=== PATIENT | male | born 1995 | race African-American/Black ===

== ENCOUNTER 2017-04-13 11:44 | Emergency (ER) | payer MEDICAID ==
[~2017-04-13] VITALS: Ht 185.4 cm; Wt 63.5 kg
[2017-04-13] MEDS ORDERED: ALBUTEROL SULF8.5 GM INH (12:02)
[2017-04-13] MEDS ORDERED: PROMETHAZINE-C118 M1 ORAL (12:02)
[2017-04-13] MEDS ORDERED: AMOXICILLIN500 MG ORAL (12:02)
[2017-04-13 12:08] VITALS: BP 134/87
[2017-04-13 12:10] VITALS: BP 134/87
--- NOTE | 2017-04-13 13:53 | Emergency Room Report ---
History of Present Illness General Chief Complaint: Upper Respiratory Illness Source: Patient Present Illness HPI 21-year-old male presents ED complaining of cough and congestion x2 days. 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 Patient notes cough with greenish sputum. Denies any fevers or chills. Denies chest pain. Denies sick contacts or recent travel. No other aggravating relieving factors. Denies any other associated symptoms Allergies: Coded Allergies: No Known Allergies (Unverified , 04/13/17) Patient History Past Medical History: none Past Surgical History: none Pertinent Family History: none Social History: Denies: smoking, alcohol use, drug use Immunizations: UTD Reviewed Nursing Documentation: PMH: Agreed, PSxH: Agreed Nursing Documentation-PMH Past Medical History: No Stated History Review of Systems All Other Systems: negative except mentioned in HPI Physical Exam Vital Signs Date Time Temp Pulse Resp B/P (MAP) Pulse Ox O2 Delivery O2 Flow Rate FiO2 04/13/17 11:48 98.4 98 18 155/87 100 Room Air Sp02 EP Interpretation: reviewed, normal General Appearance: no apparent distress, alert, GCS 15, non-toxic Head: normocephalic Eyes: bilateral eye normal inspection, bilateral eye PERRL ENT: hearing grossly normal, normal pharynx, no angioedema, normal voice Neck: normal inspection Respiratory: chest non-tender, lungs clear, normal breath sounds, speaking full sentences Cardiovascular #1: regular rate, rhythm, no edema Gastrointestinal: normal inspection Rectal: deferred Genitourinary: no CVA tenderness Musculoskeletal: normal inspection Neurologic: alert, oriented x3, responsive, motor strength/tone normal, sensory intact, speech normal Psychiatric: normal inspection Skin: normal inspection Lymphatic: normal inspection Medical Decision Making Diagnostic Impression: Primary Impression: Atypical pneumonia ER Course Hospital Course 21-year-old male presents to ED complaining of cough, congestion Differential diagnoses include: URI, pharyngitis, otitis media, asthma Clinical course Patient placed on stretcher. After initial history, physical exam reveals a young male in no acute distress. Bilateral TM unremarkable. No pharyngeal erythema. No tonsillar exudates. No lymphadenopathy. some crackles appreciated. Clinical findings consistent with atypical pneumonia. we will prescribe abx Diagnosis - atypical pneumonia Stable and discharged home with Rx amoxicillin, promethazine/codeine, albuterol. Instructed to followup with PMD. Return to ED if symptoms recur or worsen Last Vital Signs Date Time Temp Pulse Resp B/P (MAP) Pulse Ox O2 Delivery O2 Flow Rate FiO2 04/13/17 12:10 98 12 134/87 100 Room Air 04/13/17 12:08 98.1 Status: improved Disposition: HOME, SELF-CARE Condition: Stable Scripts Albuterol Sulfate* (ALBUTEROL SULFATE MDI*) 8.5 Gm Hfa.aer.ad 2 PUFF INH Q4H Y for cough/wheezing, #1 EA 0 Refills Prov: LIZETH DIMAS M.D. 04/13/17 Codeine/Promethazine Hcl* (PROMETHAZINE-CODEINE SYRUP*) 118 Ml Syrup 5 ML ORAL Q6H Y for For Cough, #118 ML 0 Refills Prov: LIZETH DIMAS M.D. 04/13/17 Amoxicillin* (AMOXIL*) 500 Mg Capsule 500 MG ORAL THREE TIMES A DAY, #21 CAP Prov: LIZETH DIMAS M.D. 04/13/17 Referrals: NOT CHOSEN FLOR/,REFERRING Departure Forms: Return to Work Return to Work Date: Apr 14, 2017 Work Restrictions: None Patient Instructions: Community-Acquired Pneumonia, Adult, [id number] LIZETH DIMAS M.D. Apr 13, 2017 13:53
== END 2017-04-13 12:10 | disposition home or self-care (01) ==
LOC: EMR 11:55
DX: J18.9 Pneumonia, unspecified organism (principal)
CPT/HCPCS: 99284

== ENCOUNTER 2017-05-04 12:39 | Emergency (ER) | payer MEDICAID ==
[~2017-05-04] VITALS: Ht 182.9 cm; Wt 63.5 kg
[~2017-05-04 12:39] MED LIST: ALBUTEROL SULF8.5 GM INH; AMOXICILLIN500 MG ORAL; PROMETHAZINE-C118 M1 ORAL
[2017-05-04] MEDS ORDERED: NKM (12:54)
[2017-05-04 13:50] VITALS: BP 128/88
[2017-05-04] MEDS ORDERED: PROAIR HFA8.5 GM INH (13:53)
[2017-05-04] MEDS ORDERED: IBUPROFEN600 MG ORAL (13:53)
[2017-05-04] MEDS ORDERED: PROMETHAZINE-C118 M1 ORAL (13:53)
[2017-05-04 14:05] VITALS: BP 124/72
--- NOTE | 2017-05-04 14:54 | Emergency Room Report ---
History of Present Illness General Chief Complaint: Upper Respiratory Illness Source: Patient Present Illness HPI The patient is a 21-year-old male who denies medical history presenting for cough, wheezing, fever, chills for the past one week. He denies any known sick contacts or recent travel. He also admits to nausea but denies vomiting. He denies any other symptoms including hemoptysis, diarrhea, rash, neck pain/ stiffness Allergies: Coded Allergies: No Known Allergies (Unverified , 04/13/17) Patient History Past Medical History: see triage record Pertinent Family History: none Reviewed Nursing Documentation: PMH: Agreed, PSxH: Agreed Review of Systems All Other Systems: negative except mentioned in HPI Physical Exam Vital Signs Date Time Temp Pulse Resp B/P (MAP) Pulse Ox O2 Delivery O2 Flow Rate FiO2 05/04/17 12:50 98.8 88 17 133/91 99 Room Air Sp02 EP Interpretation: reviewed, normal General Appearance: no apparent distress, alert, GCS 15, non-toxic Head: normocephalic, atraumatic Eyes: bilateral eye normal inspection, bilateral eye PERRL ENT: no angioedema, normal voice, uvula midline, nasal congestion, pharyngeal erythema Neck: full range of motion, supple/symm/no masses Respiratory: no respiratory distress, no accessory muscle use, wheezing - bilat Cardiovascular #1: regular rate, rhythm, no edema Genitourinary: normal inspection, no CVA tenderness Musculoskeletal: back normal, gait/station normal, normal range of motion, non- tender Neurologic: alert, oriented x3, responsive, motor strength/tone normal, sensory intact, speech normal Psychiatric: judgement/insight normal, memory normal, mood/affect normal, no suicidal/homicidal ideation Skin: normal color, no rash, warm/dry, well hydrated Lymphatic: no adenopathy Medical Decision Making PA Attestation Dr. Roy is my supervising physician. Patient management was discussed with my supervising physician Diagnostic Impression: Primary Impression: Bronchitis ER Course The patient is a 21-year-old male who denies medical history presenting for cough, wheezing, fever, chills for the past one week. Differential diagnosis include but not limited to pharyngitis, sinusitis, AOM, bronchitis, PNA PE: afebrile. No tachypnea. No apparent distress. No TTP over maxillary or frontal sinuses. Lungs: diffuse wheezing. No accessory muscle use. No resp distress Heart: RRR, no abnormal heart sounds Ears: external auditory canal clear. Non erythematous. Bilat TM intact. Cone of light present bilat. No bulging of TM. No serous fluid seen. no nasal D/C No cervical lymphad No tonsillar exudate. Uvula midline.Oropharynx is erythematous The patient will be discharged home with a prescription for albuterol, cough medication, and motrin. ER precautions given Last Vital Signs Date Time Temp Pulse Resp B/P (MAP) Pulse Ox O2 Delivery O2 Flow Rate FiO2 05/04/17 12:55 88 17 Room Air 05/04/17 12:50 98.8 133/91 99 Status: improved Disposition: HOME, SELF-CARE Condition: Improved Scripts Albuterol Sulfate* (PROAIR HFA*) 8.5 Gm Hfa.aer.ad 2 PUFFS INH Q6H, #8.5 GM 1 Refill Prov: CISCO MALDONADO 05/04/17 Codeine/Promethazine Hcl* (PROMETHAZINE-CODEINE SYRUP*) 118 Ml Syrup 5 ML ORAL Q6H Y for For Cough, #118 ML 0 Refills Prov: CISCO MALDONADO.AYann 05/04/17 Ibuprofen* (MOTRIN*) 600 Mg Tablet 600 MG ORAL Q8H Y for For Pain, #30 TAB 0 Refills Prov: CISCO MALDONADO P.A. 05/04/17 Patient Instructions: Acute Bronchitis Additional Instructions: I discussed my findings with the patient. All questions and concerns have been answered. Treatment and medication compliance have been addressed. I advised the patient that they need to follow up with PMD in 3-5 days. Return to ED if pain remains or worsens, cough worsens or remains, you notice blood in your sputum, you notice wheezing, you experience a fever, or if needed for any reason. Patient verbalized understanding of discharge instructions. CISCO MALDONADO May 04, 2017 14:53
== END 2017-05-04 14:11 | disposition home or self-care (01) ==
LOC: EMR 13:05
DX: J40 Bronchitis, not specified as acute or chronic (principal)
CPT/HCPCS: 99283

== ENCOUNTER 2017-07-07 14:17 | Emergency (ER) | payer MEDICAID ==
[~2017-07-07] VITALS: Ht 182.9 cm; Wt 63.0 kg
[~2017-07-07 14:17] MED LIST changes: +IBUPROFEN600 MG ORAL; +NKM; +PROAIR HFA8.5 GM INH
[2017-07-07] MEDS ORDERED: Dicyclomine HCl 10mg/5ml oral soln ORAL ONE (15:15)
[2017-07-07] MEDS ORDERED: Sodium Chloride 500ML 500 ML IV ONE (15:15)
--- NOTE | 2017-07-07 16:25 | Emergency Room Report ---
History of Present Illness General Chief Complaint: Nausea, Vomiting, and Diarrhea Source: Patient Present Illness HPI 21 YO Male presents to the ED c/o N/V/ diarrhea, and mucus-like cough x 1 week. Denies fevers or chills. 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 denies blood in the vomit or stool. denies dark tarry stools. Pt. reports 7/10 in severity abdominal cramping just prior to bowel movements. denies pain or tenderness at this time. Pt. denies recent travel or abx use. pt. reports z- pack almost two months ago for URI. Denies ST, nasal congestion, rhinorrhea, neck pain or stiffness. Denies dysuria, hematuria or frequency. denies rashes or joint pain. Denies CP, Palpitations, LOC, AMS, dizziness, Changes in Vision, Sensation, paresthesias, or a sudden severe headache. Allergies: Coded Allergies: No Known Allergies (Unverified , 04/13/17) Patient History Past Medical History: see triage record Past Surgical History: none Pertinent Family History: none Reviewed Nursing Documentation: PMH: Agreed, PSxH: Agreed Nursing Documentation-PMH Past Medical History: No History, Except For Review of Systems All Other Systems: negative except mentioned in HPI Physical Exam Vital Signs Date Time Temp Pulse Resp B/P (MAP) Pulse Ox O2 Delivery O2 Flow Rate FiO2 07/07/17 14:57 98.1 84 18 113/69 98 Room Air 98.1 Sp02 EP Interpretation: reviewed, normal General Appearance: no apparent distress, alert, GCS 15, non-toxic Head: normocephalic, atraumatic ENT: hearing grossly normal, normal voice Neck: full range of motion Respiratory: chest non-tender, no respiratory distress, no accessory muscle use , speaking full sentences, wheezing Cardiovascular #1: regular rate, rhythm, normal capillary refill Gastrointestinal: normal bowel sounds, non tender, soft, non-distended, no guarding, no rebound Rectal: deferred Genitourinary: normal inspection, no CVA tenderness Musculoskeletal: back normal, gait/station normal, normal range of motion, non- tender Neurologic: alert, oriented x3, responsive, motor strength/tone normal, sensory intact, speech normal, grossly normal Psychiatric: judgement/insight normal Skin: normal color, no rash, warm/dry, well hydrated Lymphatic: no adenopathy Medical Decision Making PA Attestation Dr. Nichole is my supervising Physician whom patient management has been discussed with. Diagnostic Impression: Primary Impression: Nausea, vomiting, and diarrhea Additional Impression: Bronchitis ER Course 21 YO Male presents to the ED c/o N/V/ diarrhea, and mucus-like cough x 1 week. Denies fevers or chills. 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 denies blood in the vomit or stool. denies dark tarry stools. Pt. reports 7/10 in severity abdominal cramping just prior to bowel movements. denies pain or tenderness at this time. Pt. denies recent travel or abx use. pt. reports z- pack almost two months ago for URI. Denies ST, nasal congestion, rhinorrhea, neck pain or stiffness. Denies CP, Palpitations, LOC, AMS, dizziness, Changes in Vision, Sensation, paresthesias, or a sudden severe headache. Ddx considered but are not limited to GE, colitis, acute appy, SBO, Cyclical Vomiting secondary to THC, Bronchitis, URI, PNA Vital signs: pt. is afebrile, H&PE are most consistent with GE most likely viral in etiology, no evidence to suggest acute abdomen on physical exam. Bronchitis. - NAD, non-toxic in appearance. ORDERS: -CXR: WNL ED INTERVENTIONS: -500 NS iv hydration, -Zofran 4mg - Bentyl PO pt able to tolerate oral fluids and meds. DISCHARGE: At this time pt. is stable for d/c to home. Will provide printed patient care instructions, and any necessary prescriptions. Care plan and follow up instructions have been discussed with the patient prior to discharge. Chest X-Ray Diagnostic Results Chest X-Ray Diagnostic Results : Chest X-Ray Ordered: Yes # of Views/Limited/Complete: 1 View Indication: Other - productive cough EP Interpretation: Yes PA Xray: Interpretation reviewed, by supervising MD, and agrees with findings. Interpretation: no consolidation, no effusion, no pneumothorax, no acute cardiopulmonary disease Impression: No acute disease Electronically Signed by: Lidia Kate PA-C Last Vital Signs Date Time Temp Pulse Resp B/P (MAP) Pulse Ox O2 Delivery O2 Flow Rate FiO2 07/07/17 14:57 98.1 84 18 113/69 98 Room Air 98.1 Disposition: HOME, SELF-CARE Condition: Stable Scripts Dicyclomine Hcl* (DICYCLOMINE HCL*) 10 Mg Capsule 10 MG PO QID, #12 CAP Prov: Lidia Kate 07/07/17 Ondansetron Odt* (ZOFRAN ODT*) 4 Mg Tab.rapdis 4 MG ORAL Q6H Y for Nausea & Vomiting, #15 TAB Prov: Lidia Kate 07/07/17 Albuterol Sulfate* (ALBUTEROL SULFATE MDI*) 8.5 Gm Hfa.aer.ad 2 PUFF INH Q4H, #1 INH 0 Refills Prov: Lidia Kate 07/07/17 Guaifenesin (Guaifenesin) 1,200 Mg Tab.er.12h 1200 MG PO BID, #20 TAB Prov: Lidia Kate 07/07/17 Codeine/Promethazine Hcl* (PROMETHAZINE-CODEINE SYRUP*) 118 Ml Syrup 5 ML ORAL Q6H Y for For Cough, #120 ML 0 Refills Prov: Lidia Kate 07/07/17 Patient Instructions: Acute Bronchitis, [id number] Additional Instructions: Take medications as directed. Follow up with a Primary Care Provider in 3-5 days, even if your symptoms have resolved. --Please review list of primary care clinics, if you do not already have a primary care provider Return sooner to ED if new symptoms occur, or current symptoms become worse. Do not drink alcohol, drive, or operate heavy machinery while taking Cough Syrup as this may cause drowsiness. - Please note that this Emergency Department Report was dictated using [employer] cleaning attendant technology software, occasionally this can lead to erroneous entry secondary to interpretation by the dictation equipment. Lidia Kate Jul 07, 2017 16:25
[2017-07-07] MEDS ORDERED: ALBUTEROL SULF8.5 GM INH (16:27)
[2017-07-07] MEDS ORDERED: PROMETHAZINE-C118 M1 ORAL (16:27)
[2017-07-07] MEDS ORDERED: DICYCLOMINE HCL10 MG PO (16:27)
[2017-07-07] MEDS ORDERED: ZOFRAN ODT4 MG ORAL (16:27)
[2017-07-07] MEDS ORDERED: GUAIFENESIN1200 MG PO (16:27)
--- NOTE | 2017-07-07 16:39 | Diagnostic Imaging Report ---
Indication: Chest pain Technique: One view of the chest Comparison: none Findings: Lungs and pleural spaces are clear. Heart size is normal Impression: No acute process
[2017-07-07 16:44] VITALS: BP 124/71
== END 2017-07-07 16:46 | disposition home or self-care (01) ==
LOC: EMR 15:31
DX: R11.2 Nausea with vomiting, unspecified (principal); R19.7 Diarrhea, unspecified; J40 Bronchitis, not specified as acute or chronic
CPT/HCPCS: 71045; 96361; 96374; 99284; J2405; J7040

== ENCOUNTER 2017-07-26 14:47 | Emergency (ER) | payer MEDICAID ==
[~2017-07-26] VITALS: Ht 185.4 cm; Wt 63.5 kg
[~2017-07-26 14:47] MED LIST changes: +DICYCLOMINE HCL10 MG PO; +GUAIFENESIN1200 MG PO; +ZOFRAN ODT4 MG ORAL
[2017-07-26 15:11] VITALS: BP 120/72
[2017-07-26] MEDS ORDERED: Bacitracin Oint UD TOPIC ONE (15:30)
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
[2017-07-26] MEDS ORDERED: Norco 5mg/325mg tab ORAL ONE (15:45)
[2017-07-26] MEDS ORDERED: IBUPROFEN600 MG ORAL (15:47)
[2017-07-26] MEDS ORDERED: BACITRACIN-P28.35 GM TP (15:47)
[2017-07-26] MEDS ORDERED: CEPHALEXIN500 MG ORAL (15:47)
[2017-07-26] MEDS ORDERED: PROMETHAZINE-C118 M1 ORAL (15:47)
[2017-07-26] MEDS ORDERED: ALBUTEROL SULF8.5 GM INH (15:47)
[2017-07-26 16:12] VITALS: BP 120/72
--- NOTE | 2017-07-26 16:48 | Diagnostic Imaging Report ---
Indication: Reason For Exam: PAIN Technique: 3 views right hand Comparison: none Findings: No acute fractures. No dislocations. Joint spaces are preserved. Impression: Negative
== END 2017-07-26 16:13 | disposition home or self-care (01) ==
LOC: EMR 15:27
DX: S63.501A Unspecified sprain of right wrist, initial encounter (principal); S60.511A Abrasion of right hand, initial encounter; S80.811A Abrasion, right lower leg, initial encounter; V28.0XXA Motorcycle driver injured in noncollision transport accident in nontraffic accident, initial encounter; Y92.9 Unspecified place or not applicable; J40 Bronchitis, not specified as acute or chronic
CPT/HCPCS: 99284

== ENCOUNTER 2017-08-11 16:36 | Emergency (ER) | payer MEDICAID ==
[~2017-08-11] VITALS: Ht 185.4 cm; Wt 59.0 kg
[~2017-08-11 16:36] MED LIST changes: +BACITRACIN-P28.35 GM TP; +CEPHALEXIN500 MG ORAL
--- NOTE | 2017-08-11 17:14 | Emergency Room Report ---
History of Present Illness General Chief Complaint: General Complaint Source: Patient Present Illness HPI 21 yo male patient presents to ER complaining of asthma problems and diarrhea. Reports hx of asthma, repots used inhaler without relief of symptoms. Reports needs refill of inhaler medication. Denies chest pain. Reports cough, denies hemoptysis. Reports symptoms worse at night. Reports hx of fever a few days ago, reports symptoms improved. Also complains of vomiting and diarrhea. Denies blood in stool or emesis. Denies recent travel. Denies abdominal pain. Denies dysuria. 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 Allergies: Coded Allergies: No Known Allergies (Unverified , 04/13/17) Patient History Past Medical History: see triage record Reviewed Nursing Documentation: PMH: Agreed; PSxH: Agreed Nursing Documentation-PMH Hx Asthma: Yes - Pneumonia Review of Systems All Other Systems: negative except mentioned in HPI Physical Exam Vital Signs Date Time Temp Pulse Resp B/P (MAP) Pulse Ox O2 Delivery O2 Flow Rate FiO2 08/11/17 16:44 98.2 87 19 146/78 98 Room Air 98.2 Sp02 EP Interpretation: reviewed, normal General Appearance: well appearing, no apparent distress, alert, GCS 15, non- toxic Head: normocephalic, atraumatic Eyes: bilateral eye normal inspection, bilateral eye PERRL ENT: hearing grossly normal, normal pharynx, no angioedema, normal voice, TMs + canals normal, uvula midline, moist mucus membranes, nasal congestion, other - no tonisillar exudates, no phayrngeal erythema, uvula midline Neck: full range of motion Respiratory: lungs clear, normal breath sounds, no rhonchi, no respiratory distress, no accessory muscle use, speaking full sentences, wheezing - intermittent Cardiovascular #1: regular rate, rhythm, no edema Gastrointestinal: non tender, soft, no mass, non-distended, no guarding, no rebound Genitourinary: no CVA tenderness Musculoskeletal: back normal, digits/nails normal, gait/station normal, normal range of motion, non-tender, no calf tenderness Neurologic: alert, oriented x3, responsive, motor strength/tone normal, sensory intact Psychiatric: mood/affect normal Skin: no rash Lymphatic: no adenopathy Medical Decision Making PA Attestation Dr. Bass is my supervising Physician whom patient management has been discussed with. Diagnostic Impression: Primary Impression: History of asthma Additional Impressions: Nasal congestion Wheeze Diarrhea ER Course Pt presents to ED c/o cough and diarrhea. DDX considered but are not limited to asthma, viral URI, influenza, bronchitis, sinusitis, pneumonia. DDX considered but are not limited to enteritis, food poisoning, viral infection. VITAL SIGNS are WNL, patient is afebrile. Ordered breathing treatment and medication. ER COURSE Patient provided with dexamethasone. Albuterol/Atrovent breathing treatment provided. Following treatment patient states no longer having difficulty with breathing. Patient is resting comfortably in no acute distress. CXR negative for acute disease. Patient provided with promethazine cough medication rx. Patient reports has been taking it and does not work. Patient return to ER after discharge requesting promethazine with codeine. CURES report shows no medication filled since last year. Last ER visit patient provided with same medication. Informed patient need to see primary care provider for further rx for medication, will not provide in ER again. Take medication at night for symptoms, may cause drowsiness, do not take and drink alcohol. Informed patient need to followup with primary care provider for further management of asthma. Patient reports understanding and agreement to treatment plan. Will followup with primary care provider. Will call and schedule an appointment. Patient informed of likely viral cause of symptoms. No fever, no blood in stool, no recent travel or hospitalizations, does not require abx treatment at this time. No signs of dehydration, moist mucus membranes. Patient reports eating and drinking normally. Patient instructed on BRAT diet. Patient instructed to remain hydrated, drink plenty of fluids. DISCHARGE: -Rx given for Prednisone. -Rx provided for Albuterol MDI. -Rx provided for Tylenol -Rx provided for promethazine with codeine. -Rx provided for Sudafed At this time pt is stable for d/c to home. Patient is resting comfortably in no acute distress, nontoxic appearing, able to answer questions without difficulty. Patient to take medications as instructed Will provide with patient care instructions and any necessary prescriptions. Care plan and follow-up instructions provided. Patient instructed to follow-up with primary care provider in 3 - 5 days. Patient questions asked and answered. Patient reports understanding and agreement to treatment plan. ER precautions given. Patient instructed to return to ER immediately for any new or worsening of symptoms including but not limited to increasing SOB, persistent fever. Chest X-Ray Diagnostic Results Chest X-Ray Diagnostic Results : Chest X-Ray Ordered: Yes Indication: Chest Pain EP Interpretation: Yes PA Xray: Interpretation reviewed, by supervising MD, and agrees with findings. Interpretation: no consolidation, no effusion, no pneumothorax Impression: No acute disease SIMI Gill PA-C Last Vital Signs Date Time Temp Pulse Resp B/P (MAP) Pulse Ox O2 Delivery O2 Flow Rate FiO2 08/11/17 16:44 98.2 87 19 146/78 98 Room Air 98.2 Status: improved Disposition: HOME, SELF-CARE Condition: Stable Scripts Codeine/Promethazine Hcl* (PROMETHAZINE-CODEINE SYRUP*) 118 Ml Syrup 5 ML ORAL Q6H PRN for For Cough for 5 Days, #118 ML 0 Refills Prov: Mukesh Gill 08/11/17 Pseudoephedrine Hcl* (SUDAFED*) 30 Mg Tablet 30 MG PO Q6H, #15 TAB Prov: Mukesh Gill 08/11/17 Prednisone* (PREDNISONE*) 20 Mg Tablet 40 MG ORAL DAILY for 5 Days, #10 TAB Prov: Mukesh Gill 08/11/17 Albuterol Sulfate* (ALBUTEROL SULFATE MDI*) 8.5 Gm Hfa.aer.ad 2 PUFF INH Q4H, #1 INH 0 Refills Prov: Mukesh Gill 08/11/17 Acetaminophen* (TYLENOL EXTRA STRENGTH*) 500 Mg Tablet 500 MG ORAL Q8H PRN for Prn Headache/Temp > 101, #30 TAB 0 Refills Prov: Mukesh Gill 08/11/17 Patient Instructions: Asthma, Adult, [id number], Cough, Adult, [id number], Sinusitis, Adult Additional Instructions: Followup with primary care provider in 3 -5 days. Take medications as directed. Patient questions asked and answered. ER precautions given, patient instructed to return to ER immediately for any new or worsening of symptoms. Mukesh Gill Aug 11, 2017 17:14
[2017-08-11] MEDS ORDERED: Albuterol/Ipratropium 3ml neb HHN ONE (17:15)
[2017-08-11] MEDS ORDERED: Dexamethasone 4mg/ml vial IM ONE (17:15)
[2017-08-11] MEDS ORDERED: PROMETHAZI6.25 MG/1 ORAL (18:32)
[2017-08-11] MEDS ORDERED: ALBUTEROL SULF8.5 GM INH (18:32)
[2017-08-11] MEDS ORDERED: PSEUDOEPHEDRINE30 MG PO (18:32)
[2017-08-11] MEDS ORDERED: TYLENOL EXTRA500 MG ORAL (18:32)
[2017-08-11] MEDS ORDERED: PREDNISONE20 MG ORAL (18:32)
[2017-08-11 18:45] VITALS: BP 114/77
[2017-08-11] MEDS ORDERED: PROMETHAZINE-C118 M1 ORAL (19:56)
--- NOTE | 2017-08-12 08:29 | Diagnostic Imaging Report ---
Indication: Cough Technique: One view of the chest Comparison: 07/07/2017 Findings: Lungs and pleural spaces are clear. Heart size is normal. No significant interim change Impression: No acute process
== END 2017-08-11 18:45 | disposition home or self-care (01) ==
LOC: EMR 17:17
DX: J45.909 Unspecified asthma, uncomplicated (principal); R09.81 Nasal congestion; R19.7 Diarrhea, unspecified
CPT/HCPCS: 71045; 94640; 96372; 99284; J1100; J7620

== ENCOUNTER 2017-09-17 00:08 | Emergency (ER) | payer MEDICAID ==
[~2017-09-17] VITALS: Ht 182.9 cm; Wt 61.2 kg
[~2017-09-17 00:08] MED LIST changes: +PREDNISONE20 MG ORAL; +PROMETHAZI6.25 MG/1 ORAL; +PSEUDOEPHEDRINE30 MG PO; +TYLENOL EXTRA500 MG ORAL
[2017-09-17] MEDS ORDERED: BREO ELLIPTA 11 EACH IH (00:39)
--- NOTE | 2017-09-17 00:40 | Emergency Room Report ---
History of Present Illness General Chief Complaint: Upper Respiratory Illness Source: Patient Present Illness HPI This 21-year-old male with a history of asthma. He get frequent exacerbation. He continue to smokes marijuana. Patient presents with shortness of breath and coughing. He had to miss work because of the coughing. Is why he is here to get a blood work no. No fever chills but no nausea no vomiting. Denies any other complaint. Allergies: Coded Allergies: No Known Allergies (Unverified , 09/17/17) Patient History Past Medical History: see triage record, old chart reviewed, asthma Past Surgical History: none Pertinent Family History: none Social History: Reports: drug use - Marijuana Immunizations: other Reviewed Nursing Documentation: PMH: Agreed; PSxH: Agreed Nursing Documentation-PMH Hx Asthma: Yes - Pneumonia Review of Systems Eye: Denies: eye pain, blurred vision ENT: Denies: ear pain, nose congestion, throat swelling Respiratory: Reports: cough; Denies: shortness of breath Cardiovascular: Denies: chest pain, palpitations Gastrointestinal: Denies: abdominal pain, diarrhea, nausea, vomiting Musculoskeletal: Denies: back pain, joint pain Skin: Denies: rash Neurological: Denies: headache, numbness Endocrine: Denies: increased thirst, increased urine Hematologic/Lymphatic: Denies: easy bruising All Other Systems: negative except mentioned in HPI Physical Exam Vital Signs Date Time Temp Pulse Resp B/P (MAP) Pulse Ox O2 Delivery O2 Flow Rate FiO2 09/17/17 00:10 98.1 78 16 129/86 98 98.1 09/17/17 00:27 Room Air vitals normal Sp02 EP Interpretation: reviewed, normal General Appearance: well appearing, no apparent distress, alert Head: normocephalic, atraumatic Eyes: bilateral eye PERRL, bilateral eye EOMI ENT: hearing grossly normal, normal pharynx Neck: full range of motion, supple, no meningismus Respiratory: chest non-tender, lungs clear, normal breath sounds Cardiovascular #1: regular rate, rhythm, no murmur Gastrointestinal: normal bowel sounds, non tender, no mass, no organomegaly, no bruit, non-distended Musculoskeletal: back normal, gait/station normal, normal range of motion Psychiatric: mood/affect normal Skin: warm/dry Medical Decision Making Diagnostic Impression: Primary Impression: Bronchitis ER Course Patient presents with a cough. He said is exacerbated his back pain. No evidence of wheezing here. We'll discharge home. Is asked was not well controlled. We'll add a steroid inhaler. Last Vital Signs Date Time Temp Pulse Resp B/P (MAP) Pulse Ox O2 Delivery O2 Flow Rate FiO2 09/17/17 00:27 78 16 Room Air 09/17/17 00:10 98.1 129/86 98 98.1 Status: unchanged Disposition: HOME, SELF-CARE Condition: Stable Scripts Fluticasone/Vilanterol (Breo Ellipta 100-25 Mcg INH) 1 Each Blst.w.dev 1 EACH IH DAILY, #1 EACH Prov: GARY POLK M.D. 09/17/17 Patient Instructions: Upper Respiratory Infection, Adult Additional Instructions: Follow-up with your DrYann in 7 days. Return if symptom worsen. GARY POLK M.D. September 17, 2017 00:40
[2017-09-17] MEDS ORDERED: CYCLOBENZAPRINE10 MG ORAL (01:10)
[2017-09-17 01:13] VITALS: BP_SYST 129; BP_SYST 135; BP_DIAS 82; BP_DIAS 86
== END 2017-09-17 01:13 | disposition home or self-care (01) ==
LOC: EMR 00:37
DX: J45.909 Unspecified asthma, uncomplicated (principal); M54.9 Dorsalgia, unspecified
CPT/HCPCS: 99283

== ENCOUNTER 2018-08-22 22:41 | Emergency (ER) | payer MEDICAID ==
[~2018-08-22] VITALS: Ht 182.9 cm; Wt 63.5 kg
[~2018-08-22 22:41] MED LIST changes: +BREO ELLIPTA 11 EACH IH; +CYCLOBENZAPRINE10 MG ORAL; +TRAMADOL HCL50 MG ORAL
[2018-08-22 22:50] VITALS: BP 138/84
--- NOTE | 2018-08-22 22:51 | NUR ---
ED Nurse Note: pt walked in c/o flu like sx for four days, pt reports he's been having cough with mucus, nasal congestion, body ache and sorethroat. pt reports he smokes cigarettes occasionally. pt aA&ox4, gcs=15, skin warm and dry, resp even and unlabored on RA, will cont monitor. noted dry cough at this time.
[2018-08-22] MEDS ORDERED: ALBUTEROL SULF8.5 GM INH (23:14)
[2018-08-22] MEDS ORDERED: PREDNISONE20 MG ORAL (23:14)
[2018-08-22] MEDS ORDERED: PROMETHAZINE-C118 M1 ORAL (23:14)
[2018-08-22 23:15] VITALS: BP 138/84
--- NOTE | 2018-08-22 23:15 | NUR ---
ER DISCHARGE NOTE: Patient is cleared to be discharged per ERMD, pt is aox4, on room air, with stable vital signs. pt was given dc and prescription instructions, pt was able to verbalize understanding, pt id band removed. pt is able to ambulate with steady gait. pt took all belongings.
--- NOTE | 2018-08-23 01:26 | Emergency Room Report ---
History of Present Illness General Chief Complaint: Upper Respiratory Illness Source: Patient Present Illness HPI 22-year-old male presents ED for evaluation. Patient complaining of cough and congestion for the last 4 days. Cough is productive with yellowish phlegm. Denies fevers or chills. Denies sick contacts or recent travel. Denies sore throat or earache. No other aggravating relieving factors. Denies any other associated symptoms Allergies: Coded Allergies: No Known Allergies (Unverified , 12/28/17) Patient History Past Medical History: none Past Surgical History: none Pertinent Family History: none Social History: Denies: smoking, alcohol use, drug use Immunizations: UTD Reviewed Nursing Documentation: PMH: Agreed; PSxH: Agreed Nursing Documentation-PMH Past Medical History: No History, Except For Hx Asthma: Yes - Pneumonia Review of Systems All Other Systems: negative except mentioned in HPI Physical Exam Vital Signs Date Time Temp Pulse Resp B/P (MAP) Pulse Ox O2 Delivery O2 Flow Rate FiO2 08/22/18 22:45 97.7 87 22 138/84 98 08/22/18 22:50 Room Air Sp02 EP Interpretation: reviewed, normal General Appearance: no apparent distress, alert, GCS 15, non-toxic Head: normocephalic, atraumatic Eyes: bilateral eye normal inspection, bilateral eye PERRL ENT: hearing grossly normal, normal pharynx, no angioedema, normal voice Neck: full range of motion, supple/symm/no masses Respiratory: chest non-tender, lungs clear, normal breath sounds, speaking full sentences Cardiovascular #1: regular rate, rhythm, no edema Cardiovascular #2: 2+ carotid (R), 2+ carotid (L), 2+ radial (R), 2+ radial (L) , 2+ dorsalis pedis (R), 2+ dorsalis pedis (L) Gastrointestinal: normal bowel sounds, non tender, soft, non-distended, no guarding, no rebound Rectal: deferred Genitourinary: normal inspection, no CVA tenderness Musculoskeletal: back normal, gait/station normal, normal range of motion, non- tender Neurologic: alert, oriented x3, responsive, motor strength/tone normal, sensory intact, speech normal Psychiatric: judgement/insight normal, memory normal, mood/affect normal, no suicidal/homicidal ideation Reflexes: 3+ bicep (R), 3+ bicep (L), 3+ tricep (R), 3+ tricep (L), 3+ knee (R) , 3+ knee (L) Skin: normal color, no rash, warm/dry, well hydrated Lymphatic: no adenopathy Medical Decision Making Diagnostic Impression: Primary Impression: Bronchitis ER Course Hospital Course 22-year-old male presents to ED complaining of cough, congestion Differential diagnoses include: URI, pharyngitis, otitis media, asthma Clinical course Patient placed on stretcher. After initial history, physical exam reveals a male in no acute distress. Bilateral TM unremarkable. No pharyngeal erythema. No tonsillar exudates. No lymphadenopathy. lungs clear. abdomen soft. Clinical findings consistent with bronchitis. Discussed findings with patient. Safe for discharge. We'll provide prescription for inhaler, cough medication , prednisone. Does not have a PMD. We'll provide referrals Diagnosis - bronchitis Stable and discharged home with Rx Albuterol, prednisone, promethazine/codeine. Instructed to followup with PMD. Return to ED if symptoms recur or worsen Last Vital Signs Date Time Temp Pulse Resp B/P (MAP) Pulse Ox O2 Delivery O2 Flow Rate FiO2 08/22/18 23:15 97.7 84 14 138/84 100 Room Air Status: unchanged Disposition: HOME, SELF-CARE Condition: Stable Scripts Codeine/Promethazine Hcl* (PROMETHAZINE-CODEINE SYRUP*) 118 Ml Syrup 5 ML ORAL Q6H PRN for For Cough, #118 ML 0 Refills Prov: Tang Torres MD 08/22/18 Prednisone* (PREDNISONE*) 20 Mg Tablet 40 MG ORAL DAILY, #10 TAB Prov: Tang Torres MD 08/22/18 Albuterol Sulfate* (ALBUTEROL SULFATE MDI*) 8.5 Gm Hfa.aer.ad 2 PUFF INH Q6H, #1 EA 0 Refills Prov: Tang Torres MD 08/22/18 Referrals: [facility],REFERRING (PCP) [facility] Patient Instructions: Acute Bronchitis, [id number] Tang Torres MD Aug 23, 2018 01:26
== END 2018-08-22 23:15 | disposition home or self-care (01) ==
LOC: EMR 23:05
DX: J20.9 Acute bronchitis, unspecified (principal)
CPT/HCPCS: 99282

== ENCOUNTER 2018-09-13 10:39 | Emergency (ER) | payer MEDICAID ==
[~2018-09-13] VITALS: Ht 185.4 cm; Wt 63.5 kg
[2018-09-13 10:49] VITALS: BP 118/68
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
--- NOTE | 2018-09-13 11:35 | NUR ---
ED Nurse Note:x-ray was done
--- NOTE | 2018-09-13 11:45 | Diagnostic Imaging Report ---
Indication: Right hand pain Findings: 3 views of the right hand were obtained. Normal bony mineralization and alignment are demonstrated. No acute fractures, erosions, or periosteal reaction are seen. Soft tissues are unremarkable. Impression: No acute findings.
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
[2018-09-13 12:11] VITALS: BP 118/68
--- NOTE | 2018-09-13 12:11 | NUR ---
ER DISCHARGE NOTE: Patient is cleared to be discharged per ERMD, pt is aox4, on room air, with stable vital signs. pt was given dc instructions, pt was able to verbalize understanding, pt id band removed without complications. pt is able to ambulate with steady gait. pt took all belongings.
== END 2018-09-13 12:11 | disposition home or self-care (01) ==
LOC: EMR 11:17
DX: S60.221A Contusion of right hand, initial encounter (principal); W22.8XXA Striking against or struck by other objects, initial encounter; Y92.9 Unspecified place or not applicable; F17.200 Nicotine dependence, unspecified, uncomplicated
CPT/HCPCS: 99283

== ENCOUNTER 2019-01-06 12:54 | Emergency (ER) | payer MEDICAID ==
[~2019-01-06] VITALS: Ht 182.9 cm; Wt 63.5 kg
--- NOTE | 2019-01-06 13:30 | NUR ---
ED Nurse Note: pt c/o thoat pain ermd eval done attempted to medicate pt pt refused med. SIMI Adrian informed.
[2019-01-06 13:35] VITALS: BP 129/65
--- NOTE | 2019-01-06 13:43 | Emergency Room Report ---
History of Present Illness General Chief Complaint: Flu Like Symptoms Source: Patient Present Illness HPI 23-year-old male with no significant past medical history here complaining of 4 days of sore throat, coughing phlegm and nausea. Denies any abdominal pain, diarrhea, constipation, fever and chills, chest pain shortness of breath. Patient is a heavy marijuana smoker. Patient request codeine however reports that he does not want anything I will put him to sleep. Patient wants something that will make his sore throat go away right away. Reports that he does not want to take multiple pills. Patient originally agrees with the course of treatment however leaves without being treated given discharge papers. However few minutes later the back and he wants prescription for lidocaine spray as well as antibiotic. Patient smokes marijuana heavily and smells heavily like marijuana however denies any smoke. Denies any recent travel. Denies any drug use. Allergies: Coded Allergies: No Known Allergies (Unverified , 12/28/17) Patient History Past Medical History: see triage record Past Surgical History: unable to obtain Pertinent Family History: none Social History: Reports: smoking Immunizations: UTD Reviewed Nursing Documentation: PMH: Agreed; PSxH: Agreed Nursing Documentation-PMH Past Medical History: No History, Except For Hx Asthma: Yes - Pneumonia Review of Systems All Other Systems: negative except mentioned in HPI Physical Exam Vital Signs Date Time Temp Pulse Resp B/P (MAP) Pulse Ox O2 Delivery O2 Flow Rate FiO2 01/06/19 12:58 98.6 88 18 129/65 (86) 97 Room Air Sp02 EP Interpretation: reviewed, normal General Appearance: no apparent distress, alert, GCS 15, non-toxic Head: normocephalic, atraumatic Eyes: bilateral eye normal inspection, bilateral eye PERRL ENT: hearing grossly normal, no angioedema, normal voice, tonsillar swelling, pharyngeal erythema Neck: normal inspection, full range of motion, supple Respiratory: normal inspection, chest non-tender, lungs clear, normal breath sounds, no rhonchi, no respiratory distress, no retraction, no wheezing Cardiovascular #1: regular rate, rhythm, no edema, no murmur Gastrointestinal: normal bowel sounds, non tender, soft, non-distended, no guarding, no rebound Genitourinary: normal inspection, no CVA tenderness Musculoskeletal: back normal, gait/station normal, normal range of motion, non- tender, calf tenderness Neurologic: alert, oriented x3, responsive, motor strength/tone normal, sensory intact, speech normal Psychiatric: judgement/insight normal, memory normal, mood/affect normal, no suicidal/homicidal ideation Skin: no rash Lymphatic: no adenopathy Medical Decision Making PA Attestation Diagnosis and treatment plans were reviewed and discussed with my supervising physician Dr. Saleh Diagnostic Impression: Primary Impression: Pharyngitis ER Course 23-year-old male with no significant past medical history here complaining of 4 days of sore throat, coughing phlegm and nausea. Denies any abdominal pain, diarrhea, constipation, fever and chills, chest pain shortness of breath. Patient is a heavy marijuana smoker. Patient request codeine however reports that he does not want anything I will put him to sleep. Patient wants something that will make his sore throat go away right away. Reports that he does not want to take multiple pills. Patient originally agrees with the course of treatment however leaves without being treated given discharge papers. However few minutes later the back and he wants prescription for lidocaine spray as well as antibiotic. Patient smokes marijuana heavily and smells heavily like marijuana however denies any smoke. Denies any recent travel. Denies any drug use. Ddx considered but are not limited to: strep pharyngitis, URI, tonsillitis, peritonsillar abscess, influneza Vital signs: are WNL, pt. is afebrile H&PE are most consistent with: Pharyngitis ORDERS: Lidocaine spray, azithromycin ED INTERVENTIONS: Refused to take medications pain DISCHARGE: At this time pt. is stable for d/c to home. Will provide printed patient care instructions, and any necessary prescriptions. Care plan and follow up instructions have been discussed with the patient prior to discharge. Take medication as directed follow-up with your primary care provider at this time I informed the patient that I cannot give any medication that will immediately take his symptoms go away and each antibiotic and medication needs to course of treatment however a lot of his pain and cough syrups are for symptom relief only Last Vital Signs Date Time Temp Pulse Resp B/P (MAP) Pulse Ox O2 Delivery O2 Flow Rate FiO2 01/06/19 13:35 98.6 18 129/65 97 Room Air 01/06/19 12:58 88 Disposition: HOME, SELF-CARE Condition: Stable Scripts Promethazine Hcl (PROMETHAZINE HCL*) 6.25 Mg/5 Ml Syrup 5 ML ORAL Q6H, #120 ML 0 Refills Prov: Nguyễn Smith 01/06/19 Lidocaine HCl 2% Viscous (Lidocaine HCl 2% Viscous) 100 Ml Solution 15 ML ORAL QID, #100 ML Prov: Nguyễn Smith 01/06/19 Azithromycin* (ZITHROMAX*) 250 Mg Tablet 250 MG ORAL DAILY, #6 TAB 0 Refills Take two tables once daily for 1 day, then one tablet once daily for 4 days. Prov: Nguyễn Smith 01/06/19 [facility]ERR[facility] (PCP) Patient Instructions: Pharyngitis, [id number] Additional Instructions: Take medication as directed follow-up with your primary care provider if worsening symptoms return to the emergency room Nguyễn Smith Jan 06, 2019 13:43
[2019-01-06] MEDS ORDERED: LIDOCAINE VISC100 ML ORAL (13:45)
[2019-01-06] MEDS ORDERED: PROMETHAZI6.25 MG/1 ORAL (13:45)
[2019-01-06] MEDS ORDERED: ZITHROMAX250 MG ORAL (13:45)
[2019-01-06 13:55] VITALS: BP 129/65
--- NOTE | 2019-01-06 13:55 | NUR ---
ED Nurse Note: Pt cleared by health care Provider for discharge. DC instructions/prescription was given and explained to pt and verbalized understanding of teachings. All medical deviecs such as ID band removed. Pt is AAO x4, ambulatory and left with all personal belongings. pt D/c'd by embosser operator.
[2019-01-06] MEDS: Lidocaine 2% Visc 15ml soln ORAL ONE ×2 (13:57→14:01)
--- NOTE | 2019-01-06 14:35 | NUR ---
ED Nurse Note: pt given aci and script pt upset and said iI dont want these meds and asked to speak to Nguyễn. Pa informed.
--- NOTE | 2019-01-06 14:40 | NUR ---
ED Nurse Note: pt refered to rehab nurse Alice.
== END 2019-01-06 14:00 | disposition home or self-care (01) ==
LOC: EMR 13:09
DX: J02.9 Acute pharyngitis, unspecified (principal); F12.90 Cannabis use, unspecified, uncomplicated
CPT/HCPCS: 96374; 96375; Z7502; 99284

== ENCOUNTER 2019-02-09 04:05 | Emergency (ER) | payer MEDICAID ==
[~2019-02-09] VITALS: Ht 185.4 cm; Wt 68.0 kg
[~2019-02-09 04:05] MED LIST changes: +LIDOCAINE VISC100 ML ORAL; +ZITHROMAX250 MG ORAL
[2019-02-09 04:20] VITALS: BP 106/61
--- NOTE | 2019-02-09 04:20 | NUR ---
ED Nurse Note: Patient walked in to ER due to a mass on pubic area. Patient stated he found the mass around 0400 today. Patient denies pain, drainage, puss. Patient skin intact, no skin discoloration. Alert and oriented., verbally responsive. No SOB. Afebrile. VSS.
[2019-02-09 04:37] VITALS: BP 106/61
--- NOTE | 2019-02-09 04:37 | NUR ---
ED Nurse Note: Pt cleared by ERMD for discharge. DC instructions was given and explained to pt and verbalized understanding of teachings. All medical deviecs such as ID band removed. Pt is AAO x4, ambulatory and left with all personal belongings.
--- NOTE | 2019-02-09 04:38 | Emergency Room Report ---
History of Present Illness General Chief Complaint: Skin Rash/Abscess Present Illness HPI Disclaimer: Please note that this report is being documented using [employer] technology. This can lead to erroneous entry secondary to incorrect interpretation by the dictating instrument. HPI: 33-year-old male with no reported medical history presents for evaluation of a skin nodule. Patient states he awoke this morning to use the bathroom when he noticed a firm nodule to the left of his scrotum in the left inguinal fold. Denies any recent irritation, skin rash, bruising, injury, breakdown, bruising. No warmth, nontender. Otherwise denies any history of hernias, abdominal pain, nausea, vomiting, dysuria, hematuria, penile discharge. PMH: Denies PSH: Denies Allergies: Denies Social Hx: Denies Allergies: Coded Allergies: No Known Allergies (Unverified , 12/28/17) Nursing Documentation-PMH Hx Asthma: Yes - Pneumonia Review of Systems All Other Systems: negative except mentioned in HPI Physical Exam Vital Signs Date Time Temp Pulse Resp B/P (MAP) Pulse Ox O2 Delivery O2 Flow Rate FiO2 02/09/19 04:12 98.2 75 16 106/61 (76) 96 Room Air General: Awake and alert, no acute distress HEENT: NC/AT. EOMI. Resp: Normal work of breathing Skin: Intact. No abrasions, laceration or rash over the exposed skin. There is a 2 x 2 centimeter firm nodule in the subcutaneous tissue to the left of the scrotum in the left inguinal fold. Nontender. Firm. Mobile. No fluctuance. No overlying skin breakdown. No erythema. MSK: Normal tone and bulk. Moving all extremities. No obvious deformity. Neuro: Awake and alert. Mentating appropriately Medical Decision Making Diagnostic Impression: Primary Impression: Subcutaneous nodule ER Course 23-year-old male presents for evaluation of a nontender nodule to the left of his scrotum noticed this morning. Patient at one point did shave his pubic area states he no longer does. May be an ingrown nail, cyst and possibly an abscess but he has no signs of infection at this time and that lesion is nontender. At this time, will monitor as an outpatient patient was instructed to return if any changes in condition. Do not believe he requires emergent labs or imaging at this time. Will apply warm soaks and use Tylenol Motrin as needed for pain and discomfort. We discussed need for follow-up and for reasons to return to the emergency department. He understands and agrees with this treatment plan will be discharged home. Last Vital Signs Date Time Temp Pulse Resp B/P (MAP) Pulse Ox O2 Delivery O2 Flow Rate FiO2 02/09/19 04:20 98.2 89 17 106/61 99 Room Air Disposition: HOME, SELF-CARE Condition: Stable Referrals: [facility] Patient Instructions: Abscess Additional Instructions: Please follow-up with your doctor to discuss today's emergency department visit. If you notice worsening swelling, redness, warmth, drainage or pain return to the emergency department follow-up with your doctor sooner. Otherwise , apply warm soaks and if it opens allowed to drain naturally. Do not pop or irritate the area. Return to the emergency department any new or worsening symptoms. Use Tylenol Motrin as needed for discomfort Yimi Montana MD Feb 09, 2019 04:38
== END 2019-02-09 04:37 | disposition home or self-care (01) ==
LOC: EMR 04:32
DX: R22.2 Localized swelling, mass and lump, trunk (principal); J45.909 Unspecified asthma, uncomplicated
CPT/HCPCS: 99282

== ENCOUNTER 2019-06-19 14:50 | Emergency (ER) | payer MEDICAID ==
[~2019-06-19] VITALS: Ht 185.4 cm; Wt 68.0 kg
[2019-06-19 15:20] VITALS: BP 120/76
--- NOTE | 2019-06-19 15:20 | NUR ---
ED Nurse Note: Patient walked in to ER c/o cough, congestion x 2 weeks, c/o severe headache. AAO x4, VSS at this time, skin is warm to touch. Patient has non-labored breathing, O2 sat 96% on RA.
--- NOTE | 2019-06-19 15:51 | Emergency Room Report ---
History of Present Illness General Chief Complaint: Upper Respiratory Illness Source: Patient Present Illness HPI 23-year-old male with history of recurrent visits to [place] ED for cough and congestion here complaining of 2 weeks of cough and congestion and wheezing. Patient denies any tobacco smoke or marijuana use however at the end of the room patient smells heavily like tobacco smoking marijuana. Patient has already been at [place] [facility] for same complaint before. Denies any recent travel , fever and chills, abdominal pain, nausea vomiting, sore throat. After discharge the patient with azithromycin, guaifenesin, albuterol inhaler, then patient sent my nurse to change the cough medication as he is unable to take pills and he did not work for him. Denies change to prednisone patient came to me and asked to be seen by renal doctor as we never help him with his cough. Patient reports that he does not want to see primary doctor as he does not have 1 and this is the reason why he keeps coming here. Patient was very dismissive. Patient does not directly answer Phenergan with codeine however based on my experience with the past that is what he is asking. Patient reports that he just saw the doctor occasionally Phenergan with codeine last time and would like to see him. Allergies: Coded Allergies: No Known Allergies (Unverified , 12/28/17) Patient History Past Medical History: see triage record Past Surgical History: none Pertinent Family History: none Immunizations: UTD Reviewed Nursing Documentation: PMH: Agreed; PSxH: Agreed Nursing Documentation-PMH Hx Asthma: Yes Review of Systems All Other Systems: negative except mentioned in HPI Physical Exam Vital Signs Date Time Temp Pulse Resp B/P (MAP) Pulse Ox O2 Delivery O2 Flow Rate FiO2 06/19/19 15:08 98.8 98 18 120/76 (91) 95 Room Air Sp02 EP Interpretation: reviewed, normal General Appearance: no apparent distress, alert, GCS 15, non-toxic Head: normocephalic, atraumatic Eyes: bilateral eye normal inspection, bilateral eye PERRL ENT: hearing grossly normal, normal pharynx, no angioedema, normal voice Neck: full range of motion, supple/symm/no masses Respiratory: no rhonchi, wheezing Cardiovascular #1: no murmur Gastrointestinal: normal bowel sounds, non tender, soft, non-distended, no guarding, no rebound Rectal: deferred Genitourinary: no CVA tenderness Musculoskeletal: back normal, no calf tenderness Neurologic: alert, motor strength/tone normal, oriented x3, sensory intact, responsive, speech normal Psychiatric: judgement/insight normal, memory normal, mood/affect normal, no suicidal/homicidal ideation Skin: no rash Lymphatic: no adenopathy Medical Decision Making PA Attestation All my diagnosis and treatment plans were reviewed ad discussed with my supervising physician Dr. Torres Diagnostic Impression: Primary Impression: Pneumonitis ER Course 23-year-old male with history of recurrent visits to [place] [facility] for cough and congestion here complaining of 2 weeks of cough and congestion and wheezing. Patient denies any tobacco smoke or marijuana use however at the end of the room patient smells heavily like tobacco smoking marijuana. Patient has already been at [place] [facility] for same complaint before. Denies any recent travel , fever and chills, abdominal pain, nausea vomiting, sore throat. After discharge the patient with azithromycin, guaifenesin, albuterol inhaler, then patient sent my nurse to change the cough medication as he is unable to take pills and he did not work for him. Denies change to prednisone patient came to me and asked to be seen by renal doctor as we never help him with his cough. Patient reports that he does not want to see primary doctor as he does not have 1 and this is the reason why he keeps coming here. Patient was very dismissive. Patient does not directly answer Phenergan with codeine however based on my experience with the past that is what he is asking. Patient reports that he just saw the doctor occasionally Phenergan with codeine last time and would like to see him. Ddx considered but are not limited to: bronchitis, PNA, URI viral, bacterial bronchitis, pneumonitis Vital signs: are WNL, pt. is afebrile H&PE are most consistent with: Pneumonitis ORDERS: No chest x-ray necessary as patient only has wheezing and refuses to do chest x-ray, azithromycin, albuterol ED INTERVENTIONS: None required at this time. Dr. Torres informed him that he is being dismissive and the fact that he takes the medication to him last time was because he was being pushy however patient cannot continue to do that. Patient also reported that he knows that physician assistants cannot write him Phenergan with codeine and Dr. Weiner could have corrected him that I did not write it for him as I do not believe the patient needed neither does my supervising physician who is Dr. Torres and he needs to establish a primary doctor. When he comes back for similar complaint and requesting the medication and does not guarantee that he is always going to get Phenergan with codeine. DISCHARGE: At this time pt. is stable for d/c to home. Will provide printed patient care instructions, and any necessary prescriptions. Care plan and follow up instructions have been discussed with the patient prior to discharge. Last Vital Signs Date Time Temp Pulse Resp B/P (MAP) Pulse Ox O2 Delivery O2 Flow Rate FiO2 06/19/19 15:20 98 18 Room Air 06/19/19 15:20 98.8 120/76 95 Disposition: HOME, SELF-CARE Condition: Stable Scripts Codeine/Promethazine Hcl* (PROMETHAZINE-CODEINE SYRUP*) 118 Ml Syrup 5 ML ORAL Q6H PRN for For Cough, #118 ML 0 Refills Prov: Tang Torres MD 06/19/19 Prednisone* (PREDNISONE*) 20 Mg Tablet 40 MG ORAL DAILY for 5 Days, #10 TAB Prov: Nguyễn Smith 06/19/19 Albuterol Sulfate (VENTOLIN HFA) 18 Gm Hfa.aer.ad 2 PUFFS INH EVERY 6 HOURS, #18 GM 0 Refills Prov: Nguyễn Smith 06/19/19 Azithromycin* (ZITHROMAX*) 250 Mg Tablet 250 MG ORAL DAILY, #6 TAB 0 Refills Take two tables once daily for 1 day, then one tablet once daily for 4 days. Prov: Nguyễn Smith 06/19/19 Patient Instructions: Pneumonitis Additional Instructions: Take medication as directed, follow-up with your primary care provider, increase oral hydration, if worsening symptoms return to the emergency room Nguyễn Smith Jun 19, 2019 15:51
[2019-06-19] MEDS ORDERED: PHENERGAN6.25 MG/5 ORAL (15:54)
[2019-06-19] MEDS ORDERED: ZITHROMAX250 MG ORAL (15:54)
[2019-06-19] MEDS ORDERED: GUAIFENESI100 MG/5 M ORAL (15:54)
[2019-06-19] MEDS ORDERED: VENTOLIN HFA18 GM INH (15:54)
[2019-06-19 15:59] VITALS: BP 115/71
[2019-06-19] MEDS ORDERED: PREDNISONE20 MG ORAL (16:11)
[2019-06-19] MEDS ORDERED: PROMETHAZINE-C118 M1 ORAL (16:28)
== END 2019-06-19 16:36 | disposition home or self-care (01) ==
LOC: EMR 15:50
DX: J18.9 Pneumonia, unspecified organism (principal)
CPT/HCPCS: 99282